=== PATIENT | male | born 1960 | race Caucasian/White ===

== ENCOUNTER → 2018-08-01 | Outpatient (CLI) | payer OTHER ==
[~2018-08-01] MED LIST: REGADENOSON 0.4 MG/5 ML DISP.SYRIN. IV ONE
--- NOTE | 2018-08-02 08:53 | CARD ---
MR#: [id number] Date of Study: 08/02/2018 Ordering Physician: NILESH MARTÍNEZ, Referring Physician: NILESH MARTÍNEZ Tech: Addie Mitchell SPEEDY APPROVED REPORT EXAM: Two-dimensional and M-mode echocardiogram with Doppler and color Doppler. Other Information Quality : AverageHR: 65bpm Rhythm : NSR INDICATION Chest Pain 2D DIMENSIONS RVDd3.8 (2.9-3.5cm)Left Atrium(2D)4.2 (1.6-4.0cm) IVSd0.8 (0.7-1.1cm)Aortic Root(2D)2.7 (2.0-3.7cm) LVDd4.8 (3.9-5.9cm)LVOT Diameter1.8 (1.8-2.4cm) PWd0.9 (0.7-1.1cm)LVDs3.3 (2.5-4.0cm) FS (%) 32.7 %SV66.9 ml LVEF(%)60.9 (>50%) M-Mode DIMENSIONS Left Atrium(MM)4.13 (2.5-4.0cm)Aortic Root3.12 (2.2-3.7cm) Aortic Valve AoV Peak Joshua.120.7cm/sAoV VTI26.2cm AO Peak GR.5.8mmHgLVOT Peak Joshua.114.6cm/s AO Mean GR.3mmHgAVA (VMAX)2.38cm2 JAZMIN (VTI)2.40cm2 Mitral Valve MV E Xkqywsll757.9cm/sMV DECEL GZDT557ra MV A Cfyddvcm46.7cm/sE/A Ratio1.6 MV A Alqlcxsx977tw Pulmonary Valve PV Peak Ykopucxh595.4cm/s Tricuspid Valve TR P. Lucsrrom999bw/sRAP EDESCKNC2dxPq TR Peak Gr.72nqAiJMBF14yhGb LEFT VENTRICLE The left ventricle is normal size. There is normal left ventricular wall thickness. The left ventricu lar systolic function is normal and the ejection fraction is within normal range. The Ejection Fracti on is 50-55%. There is normal LV segmental wall motion. Transmitral Doppler flow pattern is Grade II- pseudonormal filling dynamics. RIGHT VENTRICLE The right ventricle is normal size. There is normal right ventricular wall thickness. The right ventr icular systolic function is normal. ATRIA The left atrium size is normal. The right atrium size is normal. The interatrial septum is intact wit h no evidence for an atrial septal defect or patent foramen ovale as noted on 2-D or Doppler imaging. AORTIC VALVE The aortic valve is normal in structure and function. The aortic valve is trileaflet. Doppler and Col or Flow revealed no significant aortic regurgitation. There is no significant aortic valvular stenosi s. MITRAL VALVE The mitral valve is normal in structure and function. There is no evidence of mitral valve prolapse. There is no mitral valve stenosis. Doppler and Color-flow revealed trace mitral regurgitation. TRICUSPID VALVE The tricuspid valve is normal in structure and function. Doppler and Color Flow revealed trace tricus pid regurgitation. The PA pressure was estimated at 30 mmHg. There is no tricuspid valve prolapse or vegetation. There is no tricuspid valve stenosis. PULMONIC VALVE The pulmonary valve is normal in structure and function. Doppler and Color Flow revealed mild pulmoni c valvular regurgitation. There is no pulmonic valvular stenosis. GREAT VESSELS The aortic root is normal in size. The ascending aorta is normal in size. The IVC is normal in size a nd collapses >50% with inspiration. PERICARDIAL EFFUSION There is no evidence of significant pericardial effusion. Critical Notification Critical Value: No <Conclusion> The left ventricle is normal size. The left ventricular systolic function is normal and the ejection fraction is within normal range. The Ejection Fraction is 50-55%. There is no significant aortic valvular stenosis. Doppler and Color Flow revealed no significant aortic regurgitation. Doppler and Color-flow revealed trace mitral regurgitation. Doppler and Color Flow revealed trace tricuspid regurgitation. The PA pressure was estimated at 30 mmHg. Signed by : Garry Esqueda MD Electronically Approved : 08/02/2018 08:53:28
--- NOTE | 2018-08-02 11:11 | RAD ---
MR#: [id number] Date of Study: 08/02/2018 Ordering Physician: NILESH MARTÍNEZ Referring Physician: YAMILET LORENZO Tech: RT Devner (R) (N) APPROVED REPORT Test Type: Pharmacological Stress Nurse/Tech: Kaila MATA Test Indications: Palpitations Cardiac History: Family Hx, X-smoker=quit 15yrs ago Medications: See EMR Medical History: See EMR Resting ECG: SR Resting Heart Rate: 67 bpm Resting Blood Pressure: 131/70mmHg Pretest Chest Pain: No chest pain Nurse/Tech Notes Lungs CTA, Heart tones regular Consent: The procedure was explained to the patient in lay terms. Informed consent was witnessed. Sergo eout was entered into [employer]. History and Stress Test performed by [facility]. Details Pharmacologic stress testing was performed using 0.4mg per 5ml of regadenoson given intravenously ove r 7-10 seconds. Stress Symptoms No chest pain or symptoms. Pt has T-wave changes throughout test; starting at stage 1 at 01:00. Thes e changes resolve upon completion of the test at stage R at 04:55. The changes are seen as a change in T-wave inversion in leads II, III, AVF, V5, V6. The T-waves decrease in amplitude throughout the rest of the ekg leads. POST EXERCISE Reason for Termination: Infusion complete Max HR: 106 bpm Max Blood Pressure: 143/70mmHg Chest Pain: No. Arrhythmia: Yes. Frequent PVCs ST Change: No. See Stress Symptoms INTERPRETATION Stress EKG Conclusion: Baseline EKG showed sinus rhythm. No ischemic changes at peak stress. Few PV C's without any signficant arrhythmias. Imaging Protocol IMAGE PROTOCOL: Rest Tc-99m/stress Tc-99m 2 days Rest: Stress: Viability: Radiopharm.Tc99m NeointpkyPw40m Sestamibi Zhwk71gUn 33mCi Duration 15min. 15min. Img Date 08/01/2018 08/02/2018 Inj-Img Dvub76bqi. 75min. Rest Admin Site:IV - Right AntecubitalAdministrator:Nayana Sanford, RT (R)(N) Stress Admin Site: IV - Left AntecubitalAdministrator: DEMETRIO Sherman STRESS DATA End Diast. Vol.128.0mlLVEDV index BSA54.0ml End Syst. Vol.51.0mlLVESV index BSA22.0ml Myocardial Lgtf320.0gEject. Dkarvvzm26.0% Stress Scores Regional WT2.00Summed WT14.00 Regional WM0.00Summed WM2.00 Study quality was good. Left Ventricular size was Normal at Rest and Stress. Lung uptake was . Left Ventricular ejection fraction is 60%. The rest and stress images show normal perfusion, normal contraction and thickening. LV Perf. Quant 17 Seg. SSS2.00 17 Seg. SRS3.00 17 Seg. SDS1.00 Stress Defect Extent (% LAD)2.50Rest Defect Extent (% LAD)0.00Rev. Defect Extent (% LAD)0.00 Stress Defect Extent (% LCX) 0.00Rest Defect Extent (% LCX)0.00Rev. Defect Extent (% LCX)0.00 Stress Defect Extent (% RCA)0.00Rest Defect Extent (% RCA)0.00Rev. Defect Extent (% RCA)0.00 Stress Defect Extent (% OJ)0.90Rest Defect Extent (% OJ)0.00Rev. Defect Extent (% OJ)0.00 Conclusion 1. Regadenoson cardioisotope stress test did not show any evidence of ischemia or infarct. 2. Normal left ventricular systolic function with ejection fraction calculated at 60%. 3. Low risk for cardiac events. Signed by : Nilesh Martínez, Electronically Approved : 08/02/2018 11:10:44
== END | disposition home or self-care (01) ==
LOC: NM 08:13
PROVIDERS: ATTEND Internal Medicine Cardiovascular Disease
DX: I49.3 Ventricular premature depolarization (principal); I49.9 Cardiac arrhythmia, unspecified; Z87.891 Personal history of nicotine dependence; Z82.49 Family history of ischemic heart disease and other diseases of the circulatory system
CPT/HCPCS: 78452; 96374; A9500; 93017; 93306; 96376; J2785

== ENCOUNTER → 2021-07-30 | Outpatient (CLI) | payer OTHER ==
--- NOTE | 2021-07-30 11:13 | KCIC ---
EXAM: Chest, 2 views. HISTORY: Productive cough. COMPARISON: None. FINDINGS: 2 views of the chest are obtained. There is no infiltrate, pleural effusion or pneumothorax . The heart is normal in size. IMPRESSION: No acute pulmonary finding. Electronically signed by: Nayana Cancino MD (07/30/2021 11:11 AM) [id number]
== END ==
LOC: KCIC 10:45
PROVIDERS: ATTEND Family Medicine
DX: R05.9 Cough, unspecified (principal); Z87.891 Personal history of nicotine dependence
CPT/HCPCS: 71046